=== PATIENT | female | born 1965 | race Caucasian/White ===

== ENCOUNTER 2021-07-31 06:23 | Day surgery (SDC) | payer OTHER ==
[2021-07-26 10:08] VITALS: BMI 29.8
[2021-07-31] MEDS ORDERED: MIDAZOLAM HCL 2 MG/2 ML SINGLE DOSE VIAL ONE (07:12)
[2021-07-31] MEDS ORDERED: SUCCINYLCHOLINE CHLORIDE 200 MG/10 ML SYRINGE ONE (07:12)
[2021-07-31] MEDS ORDERED: PROPOFOL 20 ML ONE ×2 (07:12)
[2021-07-31] MEDS ORDERED: fentaNYL CITRATE 250 MCG/5 ML VIAL ONE (07:12)
[2021-07-31] MEDS ORDERED: PHENYLEPHRINE HCL 10 MG/1 ML SINGLE DOSE VIAL ONE ×3 (07:13→11:07)
[2021-07-31] MEDS ORDERED: LIDOCAINE HCL/PF 2% SDV 5ML VIAL ONE (07:13)
[2021-07-31] MEDS ORDERED: DEXAMETHASONE SOD PHOSPHATE 4 MG/1 ML VIAL ONE (07:13)
[2021-07-31] MEDS ORDERED: ONDANSETRON 4 MG/2 ML VIAL ONE ×3 (07:13→12:43)
[2021-07-31] MEDS ORDERED: ceFAZolin SODIUM 1 GM VIAL ONE ×2 (07:13→12:07)
[2021-07-31] MEDS ORDERED: SODIUM CHLORIDE 0.9% P/F 10 ML VIAL IJ ONE (07:15)
[2021-07-31] MEDS ORDERED: GLYCOPYRROLATE 0.2 MG/1 ML VIAL ONE ×2 (07:19→11:08)
[2021-07-31] MEDS ORDERED: ROCURONIUM BROMIDE 50 MG/5 ML SYRINGE ONE ×2 (07:54→08:38)
[2021-07-31] MEDS ORDERED: ESMOLOL HCL 100,000 MCG/10 ML VIAL ONE (08:57)
[2021-07-31] MEDS ORDERED: ACETAMINOPHEN INJECTION 100 ML IVPB ONE (09:05)
[2021-07-31] MEDS ORDERED: DESFLURANE GAS 240 ML BOTTLE IH ONE (10:43)
[2021-07-31] MEDS ORDERED: NEOSTIGMINE METHYLSULFATE 0.5 MG/1 ML - 10 ML MDV ONE (11:08)
[2021-07-31] MEDS ORDERED: ONDANSETRON 4 MG/2 ML VIAL IVPB PRN (12:48)
[2021-07-31] MEDS ORDERED: morphine SULFATE 4 MG/ML VIAL IVPUSH PRN (12:48)
[2021-07-31] MEDS ORDERED: PATIENT'S OWN MEDICATION (NON-FORMULARY) (Alprazolam [Xanax] 0.5 MG Tablet) PO PRN (12:50)
[2021-07-31] MEDS ORDERED: PROMETHAZINE HCL 25 MG/1 ML VIAL IVPB PRN (12:50)
[2021-07-31] MEDS ORDERED: ACETAMINOPHEN 325 MG TABLET (FP) PO PRN (12:50)
[2021-07-31] MEDS ORDERED: ONDANSETRON 4 MG/2 ML VIAL IVPUSH PRN (12:50)
[2021-07-31] MEDS ORDERED: ALBUTEROL SO4 HFA INHALER IH PRN (12:50)
[2021-07-31] MEDS ORDERED: LACTATED RINGERS SOLUTION 1,000 ML IV SCH ×2 (13:00)
[2021-07-31] MEDS ORDERED: ALPRAZolam 0.25 MG TABLET PO PRN (13:03)
[2021-07-31] MEDS: INSULIN SLIDING SCALE (NOVOLOG) 1 VIAL SQ SCH (17:17)
[2021-07-31] MEDS ORDERED: CEFAZOLIN 1 GM in DEXTROSE 5%-WATER - 50 ML IVPB SCH (18:00)
[2021-07-31] MEDS: CEFAZOLIN 1 GM/D5W 1 GM/50 ML BAG IVPB SCH (18:45)
[2021-07-31] MEDS: oxyCODONE HCL 5 MG TABLET PO PRN (19:48)
[2021-07-31] MEDS ORDERED: GABAPENTIN 400 MG CAPSULE PO SCH (22:00)
[2021-07-31] MEDS ORDERED: VENLAFAXINE HCL 75 MG E.R. CAPSULES PO SCH (22:00)
[2021-07-31] MEDS ORDERED: ATORVASTATIN CA 10 MG TABLET (FP) PO SCH (22:00)
[2021-07-31] MEDS: GABAPENTIN 100 MG CAPSULE PO SCH (22:28)
[2021-08-01] MEDS: CEFAZOLIN 1 GM/D5W 1 GM/50 ML BAG IVPB SCH ×2 (02:42→09:39)
[2021-08-01] MEDS: oxyCODONE HCL 5 MG TABLET PO PRN ×2 (02:42→09:41)
[2021-08-01] MEDS: metoPROLOL SUCCINATE 25 MG TAB.SR.24H (FP) PO SCH ×2 (06:56→09:40)
[2021-08-01] MEDS ORDERED: LEVOTHYROXINE NA 100 MCG TABLET (FP) PO SCH (07:00)
[2021-08-01] MEDS: INSULIN SLIDING SCALE (NOVOLOG) 1 VIAL SQ SCH ×2 (07:02→11:12)
[2021-08-01 09:39] VITALS: BP 107/61; PULSE 87; TEMP 98.3
[2021-08-01] MEDS: GABAPENTIN 100 MG CAPSULE PO SCH (09:41)
[2021-08-01] MEDS ORDERED: PATIENT'S OWN MEDICATION (NON-FORMULARY) (Fluticasone/Vilanterol [Breo Ellipta 200-25 Mcg IH SCH ×2 (10:00)
[2021-08-01] MEDS ORDERED: LOSARTAN POTASSIUM 50 MG TABLET PO SCH (10:00)
[2021-08-01] MEDS ORDERED: PANTOPRAZOLE 40 MG TABLET PO SCH (10:00)
[2021-08-01] MEDS ORDERED: HYDROCHLOROTHIAZIDE 25 MG TABLET (FP) PO SCH (10:00)
== END 2021-08-01 12:55 | disposition home or self-care (01) ==
LOC: FASUSAT 06:23 → EDSTATUS 08:00 → FM/S 14:58 → FASUSAT 22:20
PROVIDERS: ATTEND Plastic Surgery
PROC: 0H0V0ZZ Alteration of Bilateral Breast, Open Approach (ICD-10-PCS; principal; 2021-07-31 08:51)
DX: N62 Hypertrophy of breast (principal)
CPT/HCPCS: 81025; 82962; 88305-TC; 94760; J0131